=== PATIENT | female | born 1955 | race Caucasian/White ===

== ENCOUNTER 2016-09-20 13:08 | Emergency (ER) | payer MEDICAID ==
[~2016-09-20] VITALS: Ht 160 cm; Wt 93.0 kg
[~2016-09-20 13:08] MED LIST: IBUP200C PO
[2016-09-20 13:10] VITALS: Ht 160 cm; Wt 93.0 kg
--- NOTE | 2016-09-20 13:51 | RADRPT ---
PROCEDURE: XR Finger. CLINICAL INDICATION: PAIN TECHNIQUE: Three views of the right first finger. COMPARISON: None. FINDINGS: There are no fractures or dislocations. Joints appear normally aligned. The soft tissues are unrema rkable. There is a small chronic-appearing ossific structure lateral to the first digit interphalang eal joint. No radiopaque foreign body is identified. IMPRESSION: Unremarkable right first digit, without visualized fracture or dislocation. RPTAT: DD .Chandler Soto MD, MD Date Time Electronically viewed and signed by .Chandler Soto MD, on 09/20/2016 13:51 .T/
[2016-09-20] MEDS ORDERED: IBUP-1542 PO (13:55)
--- NOTE | 2016-09-20 13:59 | ERD ---
ER Documentation Chief Complaint Date/Time DATE: 09/20/16 TIME: 13:58 Chief Complaint RIGHT THUMB PAIN X 5 WEEKS HPI This 60-year-old female complains of clicking and pain in her right thumb for the last 1-1/2 months patient has a history of trauma although she does use her right hand a lot. She denies any weakness restricted range of motion. She does have some catching when she tries to flex her right thumb primarily at the MCP joint ROS All systems reviewed and are negative except as per history of present illness. Medications Home Meds Active Scripts Ibuprofen* (Motrin*) 600 Mg Tab, 600 MG PO Q6, #20 TAB Prov:JERMAINE SOUSA MD 09/20/16 Ibuprofen* (Ibuprofen*) 200 Mg Capsule, 400 MG PO Q8 Y for PAIN, #14 CAP TAKE WITH FOOD Prov:ALONSO JEFFREY NP 07/29/14 Allergies Allergies: Coded Allergies: No Known Allergy (Unverified , 04/19/14) PMhx/Soc History of Surgery: Yes (BTL) Anesthesia Reaction: No Hx Neurological Disorder: No Hx Respiratory Disorders: No Hx Cardiac Disorders: No Hx Psychiatric Problems: No Hx Miscellaneous Medical Probl: Yes (BREAST CANCER) Hx Alcohol Use: No Hx Substance Use: No Hx Tobacco Use: No Physical Exam Vitals Vital Signs Date Time Temp Pulse Resp B/P Pulse Ox O2 Delivery O2 Flow Rate FiO2 09/20/16 13:10 99.2 83 19 157/74 98 Physical Exam Const: [] Alert, [id number] per Head: Atraumatic Eyes: Normal Conjunctiva ENT: Normal External Ears, Nose and Mouth. Neck: Full range of motion..~ No meningismus. Resp: Clear to auscultation bilaterally Cardio: Regular rate and rhythm, no murmurs Abd: Soft, non tender, non distended. Normal bowel sounds Skin: No petechiae or rashes Back: No midline or flank tenderness Ext: No cyanosis, or edema. There is a palpable nodule on the flexor surface of the right thumb at the MCP joint. There is positive signs of trigger finger. There is no erythema, warmth, deformities, ischemia. Neur: Awake and alert Psych: Normal Mood and Affect Procedures/MDM X-ray right thumb 2V Interpreted by me: Bones: [No fracture] Joints: [No dislocation] Foreign body: [None]. Impression-normal right thumb x-ray Patient was placed in a right thumb metal splint. Splint Assessment: Neurovascularly intact post splint placement with good fit. Patient has signs and symptoms of right thumb trigger finger. She will discharged home instructions for orthopedic follow-up. She should return sooner for fevers, redness, new symptoms. There is no signs of ischemia, tendon or neurologic deficit, bacterial infection, tenosynovitis or septic arthritis. There is no evidence of fracture or dislocation. Departure Diagnosis: Primary Impression: Finger injury Encounter type: initial encounter Laterality: right Qualified Code: S69.91XA - Finger injury, right, initial encounter Condition: Stable Patient Instructions: What Is Trigger Finger?, Tendonitis Referrals: HARRIET COLLIER MD,IN [facility] PATEL Additional Instructions: X RAY NORMAL. ES DE TENDONITIS. Va al wolfe doctor/ specialista para mas evaluacon en el proximo semana. posiblemente necesita autorizado de wolfe doctor primario para specialista. Regresa para fiebre, o mas o nueva simptomas. JERMAINE SOUSA MD September 20, 2016 13:59
== END 2016-09-20 14:12 | disposition home or self-care (01) ==
LOC: FTE 13:08
DX: S69.91XA Unspecified injury of right wrist, hand and finger(s), initial encounter (principal); X50.9XXA Other and unspecified overexertion or strenuous movements or postures, initial encounter; Y92.9 Unspecified place or not applicable; Z85.3 Personal history of malignant neoplasm of breast
CPT/HCPCS: 29125; 73140; Z7502

== ENCOUNTER 2018-03-13 06:16 | Day surgery (SDC) | END 2018-03-13 11:00 | disposition home or self-care (01) ==